=== PATIENT | male | born 1975 | race Caucasian/White ===

== ENCOUNTER 2018-10-04 16:50 | Emergency (ER) | payer OTHER ==
--- NOTE | 2018-10-04 16:55 | UC ---
Cardiac HPI - HPI Summary HPI Summary: 43 yo male presents with chest pain. He tells me that about 2 hours ago he was sitting in the movie theater watching the [employer] movie when he developed sudden left chest pain that he describes as a pressure and squeezing sensation. This has continued to now and has not gotten better or worse. He has not associated dizziness, SOB, or nausea. He says that he has had this same feeling two other times within the last year and ignored it and his symptoms spontaneously resolved within 4-6 hours. He states that he has no PMHx and takes no medications. Sees his PCP annually. FamHx with HTN and HLD in father and CAD/[place] in grandfather. - History of Current Complaint Stated Complaint: CHEST DISCOMFORT Time Seen by Provider: 10/04/18 16:54 Hx Obtained From: Patient Onset/Duration: Sudden Onset Initial Severity: Mild Current Severity: Mild Pain Intensity: 2 - Allergy/Home Medications Allergies/Adverse Reactions: Allergies Allergy/AdvReac Type Severity Reaction Status Date / Time No Known Allergies Allergy Verified 11/08/14 20:32 PMH/Surg Hx/FS Hx/Imm Hx - Additional Past Medical History Additional PMH: None - Family History Known Family History: Positive: Cardiac Disease, Hypertension - Social History Lives: With Family Alcohol Use: Daily Substance Use Type: None Smoking Status (MU): Never Smoked Tobacco Review of Systems All Other Systems Reviewed And Are Negative: Yes Constitutional: Positive: Negative Skin: Positive: Negative Respiratory: Positive: Negative Cardiovascular: Positive: Chest Pain Gastrointestinal: Positive: Negative Genitourinary: Positive: Negative Neurovascular: Positive: Negative Musculoskeletal: Positive: Negative Neurological: Positive: Negative Psychological: Positive: Negative Physical Exam - Summary Physical Exam Summary: GENERAL: NAD. WDWN. No pain distress. SKIN: No rashes, sores, lesions, or open wounds. HEENT: Head: AT/NC Eyes: EOM intact. Conjunctiva clear without inflammation or discharge. Ears: Hearing grossly normal. TMs intact, no bulging, erythema, or edema. Nose: Nasal mucosa pink and moist. NTTP maxillary and frontal sinus. Throat: Posterior oropharynx without exudates, erythema, or tonsillar enlargement. Uvula midline. NECK: Supple. Nontender. No lymphadenopathy. CHEST: CTAB. No r/r/w. No accessory muscle use. Breathing comfortably and in no distress. CV: RRR. Without m/r/g. Pulses intact. Cap refill <2seconds. No JVD or carotid bruit. ABDOMEN: Soft. NTTP. No distention or guarding. No CVA tenderness. Bowel sounds present NEURO: Alert. PSYCH: Age appropriate behavior. Triage Information Reviewed: Yes Vital Signs: Vital Signs: Temp Pulse Resp BP Pulse Ox 98.8 F 97 16 161/92 100 10/04/18 16:55 10/04/18 16:55 10/04/18 16:55 10/04/18 16:55 10/04/18 16:55 Vital Signs Reviewed: Yes - Assessment/Plan Course Of Treatment: EKbpm NSR with LVH. No ST changes as read by Dr. Kemp. Discussed with pt that given our inability to perform an appropriate cardiac workup at the , his family history, and continued ?cardiac related symptoms today, I recommended transfer to the ED for a further evaluation. He declined ambulance transfer, but stated that he would "think about going" by private vehicle. I discussed with him the potential of an underlying cardiac and made him aware that failure to have his symptoms appropriately evaluated could result in worsening condition or . He voiced understanding and continued to state he will "think about" going to the ED. - Clinical Impression Provider Diagnosis: Squeezing chest pain Discharge - Sign-Out/Discharge Documenting (check all that apply): Patient Departure All imaging exams completed and their final reports reviewed: No Studies - Discharge Plan Condition: Stable Disposition: HOME-RECOMMEND TO ED Referrals: Mani Parikh MD [Primary Care Provider] - Additional Instructions: I strongly recommend you go to the ER for further evaluation of your chest discomfort - Billing Disposition and Condition Condition: STABLE Disposition: Home-Recommend to ED
[2018-10-04 17:12] VITALS: BP 161/92
== END 2018-10-04 17:23 | disposition home health service (06) ==
LOC: UCEAST 16:50
DX: R07.89 Other chest pain (principal); Z82.49 Family history of ischemic heart disease and other diseases of the circulatory system
CPT/HCPCS: 99212; G0463

== ENCOUNTER 2018-10-05 12:26 | Emergency (ER) | payer OTHER ==
[2018-10-05 14:32] LABS: ABS Eosinophils 0.2 10^3/ul (0-0.6); ABS Lymphocytes 2.2 10^3/ul (1.0-4.8); ABS Monocytes 0.5 10^3/ul (0-0.8); ABS Neutrophils 3.4 10^3/ul (1.5-7.7); Eosinophil % 2.5 %; Hematocrit 47 % (42-52); Hemoglobin 16.3 g/dL (14.0-18.0); Lymphocyte % 35.8 %; Mean Corpuscular HGB Conc 34 g/dL (31-36); Mean Corpuscular Hemoglobin 29 pg (27-31); Mean Corpuscular Volume 85 fL (80-94); Mean Platelet Volume 7.4 fL (7.4-10.4); Platelet Count 275 10^3/uL (150-450); Red Blood Count 5.57 10^6 /uL (4.18-5.48); Red Cell Distribution Width 14 % (10.5-15); White Blood Count 6.3 10^3/uL (3.5-10.8)
[2018-10-05 14:46] LABS: Albumin 4.7 g/dL (3.2-5.2); Albumin/Globulin Ratio 1.8 (1-3); BUN/Creatinine Ratio 15.7 (8-20); Calcium 9.8 mg/dL (8.6-10.3); EGFR African American 96.9 (>60); EGFR Non-African American 80.1 (>60); Globulin 2.6 g/dL (2-4); Total Bilirubin 0.4 mg/dL (0.2-1.0); Total Protein 7.3 g/dL (6.4-8.9)
[2018-10-05 14:48] LABS: Troponin I 0.01 ng/mL (<0.04)
[2018-10-05 14:50] LABS: CKMB ng/mL 0.9 ng/mL (0.6-6.3)
--- NOTE | 2018-10-05 15:13 | ED ---
HPI Chest Pain - HPI Summary HPI Summary: Pt. is a 43 y.o male who presents to the ER for chest pain intermittently for several months. Pt. states he has not seen his PCP yet for this complaint. He describes pain as a pressure sensation in the center of his chest. No exacerbating factors. Pt. states pain comes on at rest. Pt. denies associated sxs of dizzy, lightheadedness, syncope, diaphoresis, N/V. Denies recent illness. Pt. states pain has been on and off since yesterday so he presents for evaluation. Denies hx of HTN, HLD, smoking, DM. Pt. notes that grandfather had a heart attack in his late 40's. Sxs are moderate in severity. No current modifying factors. - History of Current Complaint Chief Complaint: EDChestPainROMI Time Seen by Provider: 10/05/18 14:56 Hx Obtained From: Patient Pain Intensity: 3 - Allergy/Home Medications Allergies/Adverse Reactions: Allergies Allergy/AdvReac Type Severity Reaction Status Date / Time No Known Allergies Allergy Verified 10/05/18 12:30 PMH/Surg Hx/FS Hx/Imm Hx Previously Healthy: Yes Endocrine/Hematology History: Denies: Hx Diabetes, Hx Thyroid Disease Cardiovascular History: Denies: Hx Hypertension Respiratory History: Denies: Hx Asthma, Hx Chronic Obstructive Pulmonary Disease (COPD) GI History: Denies: Hx Ulcer Infectious Disease History: No Infectious Disease History: Reports: Traveled Outside the [place] in Last 30 Days - [place] Denies: Hx Hepatitis, Hx Human Immunodeficiency Virus (HIV) - Family History Known Family History: Positive: Cardiac Disease, Hypertension - Social History Occupation: Retired Lives: With Family Alcohol Use: Daily Substance Use Type: Reports: None Smoking Status (MU): Never Smoked Tobacco Review of Systems Constitutional: Negative Negative: Fever, Chills Positive: Chest Pain. Negative: Palpitations Respiratory: Negative Negative: Shortness Of Breath, Cough Gastrointestinal: Negative Negative: Abdominal Pain, Vomiting, Diarrhea, Nausea Genitourinary: Negative Neurological: Negative All Other Systems Reviewed And Are Negative: Yes Physical Exam Triage Information Reviewed: Yes Vital Signs On Initial Exam: Initial Vitals Temp Pulse Resp BP Pulse Ox 97.4 F 64 14 141/92 97 10/05/18 12:30 10/05/18 12:30 10/05/18 12:30 10/05/18 12:30 10/05/18 12:30 Vital Signs Reviewed: Yes Appearance: Positive: Well-Appearing - Pt. sitting on bed in NAD. Pleasant. Skin: Positive: Warm, Dry Head/Face: Positive: Normal Head/Face Inspection Eyes: Positive: Normal, EOMI, THOR Neck: Positive: Supple Respiratory/Lung Sounds: Positive: Clear to Auscultation, Breath Sounds Present Cardiovascular: Positive: Normal, RRR. Negative: Murmur Abdomen Description: Positive: Nontender, Soft Musculoskeletal: Positive: Normal, Strength/ROM Intact Neurological: Positive: Normal, CN Intact II-III Psychiatric: Positive: Affect/Mood Appropriate Diagnostics - Vital Signs Vital Signs Temp Pulse Resp BP Pulse Ox 10/05/18 12:30 97.4 F 64 14 141/92 97 - Laboratory Lab Results: Lab Results 10/05/18 10/05/18 10/05/18 Range/Units 13:49 13:49 13:49 WBC 6.3 (3.5-10.8) 10^3/uL RBC 5.57 H (4.18-5.48) 10^6 /uL Hgb 16.3 (14.0-18.0) g/dL Hct 47 (42-52) % MCV 85 (80-94) fL MCH 29 (27-31) pg MCHC 34 (31-36) g/dL RDW 14 (10.5-15) % Plt Count 275 (150-450) 10^3/uL MPV 7.4 (7.4-10.4) fL Neut % (Auto) 53.9 % Lymph % (Auto) 35.8 % [place] % (Auto) 7.3 % Eos % (Auto) 2.5 % Baso % (Auto) 0.5 % Absolute Neuts (auto) 3.4 (1.5-7.7) 10^3/ul Absolute Lymphs (auto) 2.2 (1.0-4.8) 10^3/ul Absolute Monos (auto) 0.5 (0-0.8) 10^3/ul Absolute Eos (auto) 0.2 (0-0.6) 10^3/ul Absolute Basos (auto) 0.0 (0-0.2) 10^3/ul Absolute Nucleated RBC 0.0 10^3/ul Nucleated RBC % 0.0 Sodium 141 (135-145) mmol/L Potassium 4.0 (3.5-5.0) mmol/L Chloride 106 (101-111) mmol/L Carbon Dioxide 30 (22-32) mmol/L Anion Gap 5 (2-11) mmol/L BUN 16 (6-24) mg/dL Creatinine 1.02 (0.67-1.17) mg/dL Est GFR ( Amer) 96.9 (>60) Est GFR (Non-Af Amer) 80.1 (>60) BUN/Creatinine Ratio 15.7 (8-20) Glucose 105 H (70-100) mg/dL Lactic Acid 0.9 (0.5-2.0) mmol/L Calcium 9.8 (8.6-10.3) mg/dL Magnesium 2.0 (1.9-2.7) mg/dL Total Bilirubin 0.40 (0.2-1.0) mg/dL AST 20 (13-39) U/L ALT 28 (7-52) U/L Alkaline Phosphatase 46 (34-104) U/L Total Creatine Kinase 74 (10-223) U/L CK-MB (CK-2) 0.9 (0.6-6.3) ng/mL Troponin I 0.01 (<0.04) ng/mL B-Natriuretic Peptide (<=100) pg/mL Total Protein 7.3 (6.4-8.9) g/dL Albumin 4.7 (3.2-5.2) g/dL Globulin 2.6 (2-4) g/dL Albumin/Globulin Ratio 1.8 (1-3) TSH Pending 10/05/18 Range/Units 13:49 WBC (3.5-10.8) 10^3/uL RBC (4.18-5.48) 10^6 /uL Hgb (14.0-18.0) g/dL Hct (42-52) % MCV (80-94) fL MCH (27-31) pg MCHC (31-36) g/dL RDW (10.5-15) % Plt Count (150-450) 10^3/uL MPV (7.4-10.4) fL Neut % (Auto) % Lymph % (Auto) % [place] % (Auto) % Eos % (Auto) % Baso % (Auto) % Absolute Neuts (auto) (1.5-7.7) 10^3/ul Absolute Lymphs (auto) (1.0-4.8) 10^3/ul Absolute Monos (auto) (0-0.8) 10^3/ul Absolute Eos (auto) (0-0.6) 10^3/ul Absolute Basos (auto) (0-0.2) 10^3/ul Absolute Nucleated RBC 10^3/ul Nucleated RBC % Sodium (135-145) mmol/L Potassium (3.5-5.0) mmol/L Chloride (101-111) mmol/L Carbon Dioxide (22-32) mmol/L Anion Gap (2-11) mmol/L BUN (6-24) mg/dL Creatinine (0.67-1.17) mg/dL Est GFR ( Amer) (>60) Est GFR (Non-Af Amer) (>60) BUN/Creatinine Ratio (8-20) Glucose (70-100) mg/dL Lactic Acid (0.5-2.0) mmol/L Calcium (8.6-10.3) mg/dL Magnesium (1.9-2.7) mg/dL Total Bilirubin (0.2-1.0) mg/dL AST (13-39) U/L ALT (7-52) U/L Alkaline Phosphatase (34-104) U/L Total Creatine Kinase (10-223) U/L CK-MB (CK-2) (0.6-6.3) ng/mL Troponin I (<0.04) ng/mL B-Natriuretic Peptide 13 (<=100) pg/mL Total Protein (6.4-8.9) g/dL Albumin (3.2-5.2) g/dL Globulin (2-4) g/dL Albumin/Globulin Ratio (1-3) TSH Result Diagrams: 10/05/18 13:49 10/05/18 13:49 Lab Statement: Any lab studies that have been ordered have been reviewed, and results considered in the medical decision making process. Chest Pain Course/Dx - Course Course Of Treatment: Pt. presenting for intermittent chest pain x several months. He is afebrile with stable VS. Exam is unremarkable. ECG done at 1338 shows a sinus bradycardia at 50bpm, normal axis, no ST elevation or depression. Labs including troponin x 2 and ddimer are negative. CXR negative for acute findings per radiology. Pt. low risk based on HEART score. Pt. comfortable with dc home to .u with PCP for possible outpt. stress test and echo. Pt. to return to eR if sxs change or worsen. Pt. understands and agrees with plan. - Chest Pain Differential Diagnosis/HQI/PQRI: Acute [place], ACS, Angina, Chest Wall, GI Disease, Lower Respiratory Infection, Pulmonary Embolism - Diagnoses Provider Diagnoses: Atypical chest pain Discharge - Sign-Out/Discharge Documenting (check all that apply): Patient Departure Patient Received Moderate/Deep Sedation with Procedure: No - Discharge Plan Condition: Good Disposition: HOME Patient Education Materials: Chest Pain (ED) Referrals: Mani Parikh MD [Primary Care Provider] - Additional Instructions: Call PCP tomorrow for a close follow up appointment for further evaluation--you may need an outpatient stress test and/or echocardiogram Return to ER if symptoms change or worsen - Billing Disposition and Condition Condition: GOOD Disposition: Home
[2018-10-05 15:34] LABS: TSH (Thyroid Stimulating Horm) 1.78 mcIU/mL (0.34-5.60)
[2018-10-05 17:19] VITALS: BP 131/79
== END 2018-10-05 17:17 | disposition home or self-care (01) ==
LOC: ED 12:26
DX: R07.89 Other chest pain (principal)
CPT/HCPCS: 36415; 71045; 80053; 82550; 82553; 83605; 83735; 83880; 84443; 84484; 85025; 85379; 93005; 99282